=== PATIENT | male | born 1970 | race American Indian/Alaskan Native ===

== ENCOUNTER 2018-03-01 12:21 | Day surgery (SDC) | payer OTHER ==
[2018-03-01 11:53] VITALS: BMI 32.5
[2018-03-01] MEDS ORDERED: Midazolam 2 MG/2 ML VIAL ONE (15:45)
[2018-03-01] MEDS ORDERED: Iohexol 240 (50 ml) ONE (15:45)
[2018-03-01] MEDS ORDERED: Propofol 10 mg/ml Inj (20 ML) ONE (15:45)
[2018-03-01] MEDS ORDERED: HYDROmorphone 0.5 mg/0.5 ml ISec IVP PRN (16:02)
--- NOTE | 2018-03-01 17:09 | RAD ---
Date of service: 03/01/2018 PROCEDURE: Intraoperative Fluoroscopy. HISTORY: GROSS HEMATURIA FINDINGS: Fluoroscopic assistance was provided for cystography. Please refer to the operative report from JEANETTE Rodgers DR, MD. Total fluoroscopic time (continuous mode) utilized during the procedure 1.9 seconds. Dose report: DLP 1.09 (mGy/m2)
[2018-03-01 17:57] VITALS: RESP 18
[2018-03-01 17:58] VITALS: BP 122/90; PULSE 67; TEMP 97.8; O2SAT 98
--- NOTE | 2018-03-02 10:32 | RAD ---
Date of service: 03/01/2018 HISTORY: GROSS HEMATURIA COMPARISON: None available. FINDINGS: BOWEL: Mild Stool retention. No bowel obstruction appreciated. BONES: Possible trace L5-S1 facet hypertrophic arthrosis. Vertebral body heights and pedicles appear grossly intact. Possible 1 mm left os acetabulum. OTHER FINDINGS: None. IMPRESSION: No urolithiasis appreciated. Other findings as above.
--- NOTE | 2018-03-25 10:08 | OP ---
PROCEDURE DATE: 03/01/2018 PREOPERATIVE DIAGNOSES: Hematuria, voiding dysfunction, decreased force of stream, irritative and obstructive complaints. POSTOPERATIVE DIAGNOSES: Hematuria, voiding dysfunction, decreased force of stream, irritative and obstructive complaints. PROCEDURES PERFORMED: Cystostomy, bilateral retrograde pyelograms. SURGEON: Bryan Johnson MD. BLOOD LOSS: Less than 10 mL. UROLOGY OPERATIVE FINDING: Normal intrauterine ____ of urine and ____ occlusive prostate. COMPLICATIONS: There were no complications. INDICATIONS: See history and physical for further details. A very pleasant gentleman, here for the above procedure. DESCRIPTION OF PROCEDURE: After obtaining informed consent, the patient was placed on the table. Routine monitors were placed. Time-out was called to confirm positioning. Risks and benefits discussed at length, risk of infection, risk of bleeding. Benefits of inspecting this with the diagnostic study. An evaluation prematurely. Time-out was called to confirm patient positioning. Antibiotic prophylaxis was used. ____ 2 to 6 cm at length. Ureteral orifice identified. Bilateral retrograde pyelogram was performed. Films submitted for the radiology to read, but they are relatively ____. ____ removed. Rectal exam performed all within normal limits. The patient ____. The patient tolerated without complication. Bryan Johnson MD
--- NOTE | 2018-03-25 14:15 | HP ---
CHIEF COMPLAINT: Voiding dysfunction. HISTORY OF PRESENT ILLNESS: Mr. Samuels is a very pleasant gentleman who has voiding dysfunction, irritative and obstructive complaints. microscopic hematuria. PAST MEDICAL AND SURGICAL HISTORY: Listed on the chart, but essentially unremarkable. PHYSICAL EXAMINATION: GENERAL: A well-nourished gentleman, in no apparent distress. VITAL SIGNS: Within normal limits in the chart. DIAGNOSES: Hematuria, voiding dysfunction, and irritative and obstructive urinary complaints. PLAN: As follows: We are going to plan for cystoscopy and retrograde pyelogram. Antibiotic prophylaxis reviewed and risks and benefits were discussed with the patient at length. Bryan Johnson MD
== END 2018-03-01 17:55 | disposition home or self-care (01) ==
LOC: C.SDS 12:21
PROVIDERS: ATTEND Urology
DX: R31.0 Gross hematuria (principal)
CPT/HCPCS: 51102; 52005; 74018; C1758; Q9966